=== PATIENT | female | born 1970 | race Caucasian/White ===

== ENCOUNTER 2018-03-14 11:51 | Observation (INO) | END 2018-03-16 21:30 | disposition home or self-care (01) ==

== ENCOUNTER 2018-04-05 19:08 | Emergency (ER) | END 2018-04-06 04:59 | disposition home or self-care (01) ==

== ENCOUNTER 2018-09-24 08:46 | Day surgery (SDC) | END 2018-09-24 14:39 | disposition home or self-care (01) ==